=== PATIENT | female | born 1960 | race Caucasian/White ===

== ENCOUNTER 2019-02-10 17:00 | Inpatient (IN) | payer BC ==
[2019-02-10] MEDS: SOD CHLORIDE 0.9% 500 ML IV (17:19)
[2019-02-10] MEDS: NORepinephrine 8MG/250 ML (PMX 250 ML IV (17:35)
[2019-02-10] MEDS: CALCIUM GLUCONATE 10% 2 GM in DEXTROSE 5% 100 ML IVPB (17:56)
[2019-02-10] MEDS: PIPER-TAZO 3.375 GM IV (PMX) 100 ML IVPB ×2 (17:56→18:43)
[2019-02-10] MEDS: MIDAZOLAM (DRIP) 50 mg/50 mL 50 ML IV (17:56)
[2019-02-10] MEDS: VANCOMYCIN 1 GM (PMX) 250 ML IVPB (19:13)
[2019-02-10] MEDS ORDERED: ONDANSETRON 4 MG INJ IV (20:00)
[2019-02-10] MEDS ORDERED: NACL 0.9% 3 ML SYG IV (20:00)
[2019-02-10] MEDS ORDERED: GLUCOSE GEL 15 GRAM TUBE PO ×2 (22:30)
[2019-02-10] MEDS ORDERED: GLUCOSE GEL 15 GRAM TUBE BUCCAL (22:30)
[2019-02-10] MEDS ORDERED: GLUCAGON 1 MG INJ IM (22:30)
[2019-02-10] MEDS ORDERED: DEXTROSE 50% 50 ML SYRINGE IV ×2 (22:30)
[2019-02-11] MEDS ORDERED: NORepinephrine 8MG/250 ML (PMX 250 ML IV (01:30)
[2019-02-11] MEDS: PIPER-TAZO 2.25 GM (PMX) 50 ML IVPB ×4 (01:30→22:20)
[2019-02-11] MEDS: ACCU-CHEK XX ×10 (01:46→23:41)
[2019-02-11] MEDS: MIDAZOLAM (DRIP) 50 mg/50 mL 50 ML IV ×2 (02:15→15:05)
[2019-02-11] MEDS: INSULIN ASPART [NOVOLOG] 3 ML PEN SC ×3 (02:38→09:11)
[2019-02-11] MEDS: PANTOPRAZOLE 40 MG INJ IV (06:06)
[2019-02-11] MEDS ORDERED: ACETAMINOPHEN 650MG/20.3ML CUP PO (13:00)
[2019-02-11] MEDS ORDERED: MAGNESIUM SULFATE 2 GM/50 ML 50 ML IVPB (13:00)
[2019-02-11] MEDS ORDERED: ACETAMINOPHEN 650 MG SUPP PR (13:00)
[2019-02-11] MEDS ORDERED: DEXTROSE 50% 50 ML SYRINGE IV ×2 (13:00)
[2019-02-11] MEDS ORDERED: MEPERIDINE 25 MG INJ IV ×2 (13:00)
[2019-02-11] MEDS: ARTIFICIAL TEARS 15 ML OPH BOTH EYES ×5 (15:00→23:38)
[2019-02-11] MEDS: POTASSIUM CHLORIDE 50 ML IVPB (15:00)
[2019-02-11] MEDS: FENTAnyl (DRIP) 1000 mcg/100mL 100 ML IV (15:06)
[2019-02-11] MEDS: VECURONIUM 100 MG in DEXTROSE 5% 100 ML IV (15:41)
[2019-02-11] MEDS ORDERED: OCULAR LUBRICANT 3.5 GM OPH OINT BOTH EYES (18:00)
[2019-02-11] MEDS: OCULAR LUBRICANT 3.5 GM OPH OINT BOTH EYES ×2 (18:17→23:38)
[2019-02-11] MEDS: NORepinephrine 8MG/250 ML (PMX 250 ML IV (20:40)
[2019-02-12] MEDS: ACCU-CHEK XX ×9 (04:04→23:00)
[2019-02-12] MEDS: INSULIN HUMAN REGULAR 100 UNIT in SOD CHLORIDE 0.9% 99 ML IV (05:02)
[2019-02-12] MEDS: PIPER-TAZO 2.25 GM (PMX) 50 ML IVPB ×3 (06:11→21:24)
[2019-02-12] MEDS: PANTOPRAZOLE 40 MG INJ IV (06:12)
[2019-02-12] MEDS: OCULAR LUBRICANT 3.5 GM OPH OINT BOTH EYES ×4 (06:12→23:58)
[2019-02-12] MEDS: ARTIFICIAL TEARS 15 ML OPH BOTH EYES ×4 (06:12→23:58)
[2019-02-12] MEDS: VECURONIUM 100 MG in DEXTROSE 5% 100 ML IV (09:42)
[2019-02-12] MEDS: ACETAMINOPHEN 650MG/20.3ML CUP PO (13:00)
[2019-02-12] MEDS: ACETAMINOPHEN 650 MG SUPP PR ×2 (13:00→20:16)
[2019-02-12] MEDS ORDERED: ASPIRIN 81 MG TAB PO (20:00)
[2019-02-12] MEDS ORDERED: ACETAMINOPHEN 650MG/20.3ML CUP NGT (21:00)
[2019-02-12] MEDS ORDERED: ATORVASTATIN 20 MG TAB PO (21:00)
[2019-02-12] MEDS: ATORVASTATIN 20 MG TAB NGT (21:24)
[2019-02-12] MEDS: MIDAZOLAM (DRIP) 50 mg/50 mL 50 ML IV (23:21)
[2019-02-12] MEDS: NORepinephrine 8MG/250 ML (PMX 250 ML IV (23:59)
[2019-02-13] MEDS: ACCU-CHEK XX ×24 (00:31→23:00)
[2019-02-13] MEDS: ACETAMINOPHEN 650 MG SUPP PR ×4 (01:00→18:12)
[2019-02-13] MEDS: ACETAMINOPHEN 650MG/20.3ML CUP NGT ×4 (01:42→18:11)
[2019-02-13] MEDS: ARTIFICIAL TEARS 15 ML OPH BOTH EYES ×4 (05:22→23:49)
[2019-02-13] MEDS: PIPER-TAZO 2.25 GM (PMX) 50 ML IVPB ×3 (05:22→23:03)
[2019-02-13] MEDS: PANTOPRAZOLE 40 MG INJ IV (05:22)
[2019-02-13] MEDS: OCULAR LUBRICANT 3.5 GM OPH OINT BOTH EYES ×4 (05:22→23:49)
[2019-02-13] MEDS: FENTAnyl (DRIP) 1000 mcg/100mL 100 ML IV (08:36)
[2019-02-13] MEDS: ASPIRIN 81 MG TAB NGT (10:12)
[2019-02-13] MEDS: VECURONIUM 100 MG in DEXTROSE 5% 100 ML IV (12:07)
[2019-02-13] MEDS: INSULIN HUMAN REGULAR 100 UNIT in SOD CHLORIDE 0.9% 99 ML IV (18:23)
[2019-02-13] MEDS: ALBUMIN HUMAN 25% 100 ML IV (22:14)
[2019-02-13] MEDS: HEPARIN 1000 UNITS/ML 10 ML INJ CATHETER (23:01)
[2019-02-13] MEDS: ATORVASTATIN 20 MG TAB NGT (23:48)
[2019-02-14] MEDS: ACCU-CHEK XX ×11 (01:34→09:53)
[2019-02-14] MEDS: PIPER-TAZO 2.25 GM (PMX) 50 ML IVPB ×3 (06:24→22:21)
[2019-02-14] MEDS: PANTOPRAZOLE 40 MG INJ IV (06:25)
[2019-02-14] MEDS: ARTIFICIAL TEARS 15 ML OPH BOTH EYES ×3 (06:29→17:07)
[2019-02-14] MEDS: OCULAR LUBRICANT 3.5 GM OPH OINT BOTH EYES ×3 (06:29→17:07)
[2019-02-14] MEDS: ASPIRIN 81 MG TAB NGT (09:49)
[2019-02-14] MEDS ORDERED: ATROPINE 1 MG/10 ML SYRINGE (15:09)
[2019-02-14] MEDS ORDERED: DOPamine-D5W 1.6 MG/ML 250 ML (15:15)
[2019-02-14] MEDS: NORepinephrine 8MG/250 ML (PMX 250 ML IV (15:25)
[2019-02-14] MEDS ORDERED: DOPamine-D5W 1.6 MG/ML 250 ML IV (18:00)
[2019-02-14] MEDS: ATORVASTATIN 20 MG TAB NGT (20:50)
[2019-02-15] MEDS: ARTIFICIAL TEARS 15 ML OPH BOTH EYES ×4 (00:14→17:23)
[2019-02-15] MEDS: OCULAR LUBRICANT 3.5 GM OPH OINT BOTH EYES ×4 (00:14→17:23)
[2019-02-15] MEDS: PANTOPRAZOLE 40 MG INJ IV (05:22)
[2019-02-15] MEDS: PIPER-TAZO 2.25 GM (PMX) 50 ML IVPB ×3 (05:22→22:17)
[2019-02-15] MEDS: ASPIRIN 81 MG TAB NGT (07:42)
[2019-02-15] MEDS: ALBUMIN HUMAN 25% 100 ML IV (09:31)
[2019-02-15] MEDS: NORepinephrine 8MG/250 ML (PMX 250 ML IV (16:27)
[2019-02-15] MEDS: ATORVASTATIN 20 MG TAB NGT (20:07)
[2019-02-16] MEDS: ARTIFICIAL TEARS 15 ML OPH BOTH EYES ×4 (01:37→18:39)
[2019-02-16] MEDS: OCULAR LUBRICANT 3.5 GM OPH OINT BOTH EYES ×4 (01:37→18:39)
[2019-02-16] MEDS: PANTOPRAZOLE 40 MG INJ IV (06:02)
[2019-02-16] MEDS: PIPER-TAZO 2.25 GM (PMX) 50 ML IVPB ×3 (06:09→21:20)
[2019-02-16] MEDS: ASPIRIN 81 MG TAB NGT (08:01)
[2019-02-16] MEDS: MIDODRINE 5 MG TAB PO (17:00)
[2019-02-16] MEDS: ATORVASTATIN 20 MG TAB NGT (21:19)
[2019-02-17] MEDS: PANTOPRAZOLE 40 MG INJ IV (05:37)
[2019-02-17] MEDS: PIPER-TAZO 2.25 GM (PMX) 50 ML IVPB ×2 (05:37→14:01)
[2019-02-17] MEDS: NORepinephrine 8MG/250 ML (PMX 250 ML IV (08:43)
[2019-02-17] MEDS: MIDODRINE 5 MG TAB PO ×3 (11:33→16:49)
[2019-02-17] MEDS: ASPIRIN 81 MG TAB NGT (11:33)
[2019-02-17] MEDS ORDERED: ATROPINE 1% 5 ML OPH SL (17:30)
[2019-02-17] MEDS: LORAZEPAM 2 MG INJ IV (17:47)
[2019-02-17] MEDS ORDERED: morphine (DRIP) 100 MG/100 ML 100 ML IV (18:00)
[2019-02-17] MEDS: morphine 2 MG INJ IV (18:07)
== END 2019-02-17 18:30 | disposition expired | DRG 296 ==
LOC: ICU 18:55 → E/R 17:00
PROC: 5A1955Z Respiratory Ventilation, Greater than 96 Consecutive Hours (ICD-10-PCS; principal; 2019-02-10)
PROC: 0BH17EZ Insertion of Endotracheal Airway into Trachea, Via Natural or Artificial Opening (ICD-10-PCS; 2019-02-10)
PROC: 5A12012 Performance of Cardiac Output, Single, Manual (ICD-10-PCS; 2019-02-10)
PROC: 06HY33Z Insertion of Infusion Device into Lower Vein, Percutaneous Approach (ICD-10-PCS; 2019-02-10)
PROC: 5A1D70Z Performance of Urinary Filtration, Intermittent, Less than 6 Hours Per Day (ICD-10-PCS; 2019-02-13)
DX: I46.9 Cardiac arrest, cause unspecified (principal); N18.6 End stage renal disease; J96.91 Respiratory failure, unspecified with hypoxia; J96.92 Respiratory failure, unspecified with hypercapnia; J90 Pleural effusion, not elsewhere classified; R57.9 Shock, unspecified; G93.1 Anoxic brain damage, not elsewhere classified; T82.868A Thrombosis due to vascular prosthetic devices, implants and grafts, initial encounter; I12.0 Hypertensive chronic kidney disease with stage 5 chronic kidney disease or end stage renal disease; D63.8 Anemia in other chronic diseases classified elsewhere; D69.6 Thrombocytopenia, unspecified; E78.5 Hyperlipidemia, unspecified; E11.22 Type 2 diabetes mellitus with diabetic chronic kidney disease; E11.65 Type 2 diabetes mellitus with hyperglycemia; E11.319 Type 2 diabetes mellitus with unspecified diabetic retinopathy without macular edema; H54.8 Legal blindness, as defined in USA; I34.0 Nonrheumatic mitral (valve) insufficiency; I25.10 Atherosclerotic heart disease of native coronary artery without angina pectoris; Z51.5 Encounter for palliative care; Z99.2 Dependence on renal dialysis; Z79.4 Long term (current) use of insulin
CPT/HCPCS: 31500; 36600; 70450; 71045; 76942; 78606; 80048; 80053; 80061; 80076; 82150; 82550; 82553; 82803; 82947; 82962; 83036; 83605; 83615; 83690; 83735; 84100; 84443; 84484; 85025; 85378; 85384; 85610; 85730; 87040-91; 87070; 87081; 87340; 89220; 90935; 92950; 93005; 93306; 93931; 94002; 94003; 94770; 95819; 96361; 96374; 96375; 99291-25